=== PATIENT | female | born 1940 | race American Indian/Alaskan Native ===

== ENCOUNTER 2016-09-28 11:06 | Emergency (ER) | payer MEDICARE, MEDICAID ==
--- NOTE | 2016-09-28 11:41 | Emergency Department Report ---
ED Fall HPI - General Chief Complaint: Fall Stated Complaint: FELL COMING INTO HOSPITAL Time Seen by Provider: 09/28/16 11:33 Source: patient Mode of arrival: Ambulatory - History of Present Illness Initial Comments: Pt was walking into hospital to visit a patient and tripped, striking her face on the ground. Also reports soreness to L knee and R wrist/shoulder. Denies LOC. Does not take blood thinners. Reports tetanus UTD. MD Complaint: fall -: Sudden, hour(s) (1) Fall From: standing When Fall Occurred: 1 hour [facility] Fall Witnessed: no Loss of Consciousness: none Prolonged Down Time?: no Symptoms Prior to Fall: none Location: face Location - Extremities: Left: Knee, Right: Shoulder, Hand Severity: moderate Quality: aching Context: tripped/slipped Associated Symptoms: denies - Related Data Previous Rx's Medication Instructions Recorded Last Taken Type Ibuprofen [Motrin] 600 mg PO Q8H PRN #15 tablet 09/28/16 Unknown Rx Allergies Allergy/AdvReac Type Severity Reaction Status Date / Time Penicillins Allergy Rash Verified 09/28/16 11:20 ED Review of Systems ROS: Stated complaint: FELL COMING INTO HOSPITAL Other details as noted in HPI Comment: All other systems reviewed and negative Constitutional: denies: chills, fever Eyes: denies: eye pain, eye discharge, vision change ENT: denies: ear pain, throat pain Respiratory: denies: cough, shortness of breath, wheezing Cardiovascular: denies: chest pain, palpitations Endocrine: no symptoms reported Gastrointestinal: denies: abdominal pain, nausea, diarrhea Genitourinary: denies: urgency, dysuria, discharge Musculoskeletal: arthralgia. denies: back pain, joint swelling Skin: denies: rash, lesions Neurological: headache. denies: weakness, numbness, paresthesias, confusion, abnormal gait Psychiatric: denies: anxiety, depression Hematological/Lymphatic: denies: easy bleeding, easy bruising ED Past Medical Hx - Past Medical History Previous Medical History?: Yes Hx Hypertension: Yes Hx Diabetes: Yes Additional medical history: High cholesterol - Surgical History Past Surgical History?: Yes Additional Surgical History: hystertectomy - Social History Smoking Status: Former Smoker Substance Use Type: Prescribed - Medications Home Medications: Home Medications Medication Instructions Recorded Confirmed Last Taken Type Ibuprofen [Motrin] 600 mg PO Q8H PRN #15 tablet 09/28/16 Unknown Rx ED Physical Exam - General Limitations: No Limitations General appearance: alert, in no apparent distress - Head Head exam: Present: normocephalic, other (Abrasions to bridge of nose, L forehead, L cheek/inferior orbit. ) - Eye Eye exam: Present: normal appearance, PERRL, EOMI Pupils: Present: normal accommodation - ENT ENT exam: Present: normal exam, mucous membranes moist - Neck Neck exam: Present: normal inspection, full ROM. Absent: tenderness - Respiratory Respiratory exam: Present: normal lung sounds bilaterally. Absent: respiratory distress, wheezes - Cardiovascular Cardiovascular Exam: Present: regular rate, normal rhythm. Absent: systolic murmur, diastolic murmur, rubs, gallop - GI/Abdominal GI/Abdominal exam: Present: soft, normal bowel sounds. Absent: distended, tenderness, guarding - Extremities Exam Extremities exam: Present: normal inspection, full ROM, other (Mild tenderness to L knee; full ROM. L ankle/hip normal. Mild tenderness to ulnar aspect of R wrist, full rom. Elbow, hands normal. Mild tenderness to R shoulder with full ROM. CMS/tendon function intact. ) - Back Exam Back exam: Present: normal inspection - Neurological Exam Neurological exam: Present: alert, oriented X3, CN II-XII intact, normal gait, reflexes normal. Absent: motor sensory deficit - Psychiatric Psychiatric exam: Present: normal affect, normal mood - Skin Skin exam: Present: warm, dry, intact, normal color. Absent: rash ED Course Vital Signs 09/28/16 11:21 Temperature 98.7 F Pulse Rate 103 H Respiratory 18 Rate Blood Pressure 180/96 O2 Sat by Pulse 100 Oximetry - Reevaluation(s) Reevaluation #1: 09/28/16 13:34 NAD, stable for d/c. ED Medical Decision Making - Radiology Data Radiology results: report reviewed, image reviewed interpreted by me: plain films show NAF CT head/face show NAF - Medical Decision Making Pt with multiple contusions/abrasions. No acute fractures. Follow up with PCP. - Differential Diagnosis contusion, abrasion, fracture Critical care attestation.: If time is entered above; I have spent that time in minutes in the direct care of this critically ill patient, excluding procedure time. ED Disposition Clinical Impression: Multiple contusions Abrasion of face Qualifiers: Encounter type: initial encounter Qualified Code(s): S00.81XA - Abrasion of other part of head, initial encounter Disposition: DISCHARGED TO HOME OR SELFCARE Is pt being admited?: No Condition: Stable Instructions: Abrasion (ED), Contusion in Adults (ED) Prescriptions: Ibuprofen [Motrin] 600 mg PO Q8H PRN #15 tablet PRN Reason: Pain Referrals: [facility] DR [Other] - 3-5 Days Time of Disposition: 13:35
--- NOTE | 2016-09-28 13:16 | Cat Scan Report ---
Cranial CT without contrast. Findings: There is no evidence of acute hemorrhage or infarct. The posterior fossa is normal. The ventricles are normal in size and contour. There are no extra-axial collections. No masses are seen. Mild left is present. The calvarium is intact. Impression: No acute findings.
--- NOTE | 2016-09-28 13:19 | Cat Scan Report ---
CT of the facial bones. Procedure and findings: Spiral acquisition was performed with sagittal and coronal reformatted images. No fractures or other acute findings are seen. There are no air-fluid levels within paranasal sinuses. The nasal septum is mildly deviated. The the orbits are intact. The globes appear normal. Impression: Normal study.
[2016-09-28 13:46] VITALS: BP 172/92
--- NOTE | 2016-09-28 14:22 | XRay Report ---
LEFT KNEE, 3 views: History: Left knee pain. The bony architecture is intact without evidence of fracture or dislocation. No significant soft tissue abnormality is seen. IMPRESSION: Unremarkable left knee.
--- NOTE | 2016-09-28 14:23 | XRay Report ---
RIGHT SHOULDER: History: Right shoulder pain. Mild osteoarthritic changes are identified at the acromioclavicular joint. Normal articulation at the glenohumeral joint. No evidence for fracture, dislocation or ligamentous injury. IMPRESSION: Mild acromioclavicular osteoarthritis.
--- NOTE | 2016-09-28 14:24 | XRay Report ---
RIGHT WRIST, 4 VIEWS: History: Right wrist pain. Routine views demonstrate the carpal bones to be well mineralized with well preserved bony mineralization and interosseous joint spaces. The carpal and adjacent articular bones have normal contours. The surrounding soft tissues are unremarkable. IMPRESSION: Unremarkable right wrist.
== END 2016-09-28 13:47 | disposition home or self-care (01) ==
LOC: ED 11:06
DX: S00.81XA Abrasion of other part of head, initial encounter (principal); T14.90 Injury, unspecified; I10 Essential (primary) hypertension; E11.9 Type 2 diabetes mellitus without complications; E78.00 Pure hypercholesterolemia, unspecified; Z87.891 Personal history of nicotine dependence; W18.30XA Fall on same level, unspecified, initial encounter; Y93.9 Activity, unspecified; Y92.9 Unspecified place or not applicable; Y99.9 Unspecified external cause status
CPT/HCPCS: 70450; 70486